=== PATIENT | female | born 1940 | race Caucasian/White ===

== ENCOUNTER → 2023-12-20 09:31 | Outpatient (REF) | payer MEDICARE, BC, SELFPAY | LOC: RAD 09:31 | PROVIDERS: ATTENDING PHYSICIAN Internal Medicine Gastroenterology; FAMILY PHYSICIAN Family Medicine; REFERRING PHYSICIAN Urology | DX: R19.09 Other intra-abdominal and pelvic swelling, mass and lump (principal) | CPT/HCPCS: 76705 ==

== ENCOUNTER → 2024-03-22 09:02 | Outpatient (REF) | payer MEDICARE, BC, SELFPAY | LOC: RCS 09:02 | PROVIDERS: ATTENDING PHYSICIAN Internal Medicine Cardiovascular Disease; FAMILY PHYSICIAN Family Medicine | DX: R06.02 Shortness of breath (principal) | CPT/HCPCS: 93225; 93226 ==

== ENCOUNTER → 2024-03-30 12:46 | Outpatient (REF) | payer MEDICARE, BC, SELFPAY | LOC: RCS 12:46 | PROVIDERS: ATTENDING PHYSICIAN Nurse Practitioner; FAMILY PHYSICIAN Family Medicine | DX: R06.09 Other forms of dyspnea (principal) | CPT/HCPCS: 93017; 93350 ==

== ENCOUNTER → 2024-04-03 12:45 | Outpatient (REF) | payer MEDICARE, BC, SELFPAY | LOC: HWRCS 12:45 | PROVIDERS: ATTENDING PHYSICIAN Nurse Practitioner; FAMILY PHYSICIAN Family Medicine | DX: R06.09 Other forms of dyspnea (principal) | CPT/HCPCS: 93306 ==

== ENCOUNTER → 2024-08-01 10:56 | Outpatient (REF) | payer MEDICARE, BC, SELFPAY | LOC: PAVMRI 10:56 | PROVIDERS: ATTENDING PHYSICIAN Physical Medicine & Rehabilitation | DX: M54.16 Radiculopathy, lumbar region (principal) | CPT/HCPCS: 72148 ==

== ENCOUNTER 2024-10-08 10:20 | Emergency (ER) | payer MEDICARE, BC, SELFPAY ==
[2024-10-08 10:26] VITALS: BP 125/60
--- NOTE | 2024-10-08 10:34 | ED.GENMED ---
ED Provider Triage
<Mara Edmonds PA-C - Last Filed: 10/08/24 10:53>
-
Patient seen by provider in Triage?: Seen in Triage
83 y/o F
cad, htn, hld
started with nausea/vomiting/diarrhea 4 days ago, lasted about 48 hours
now can drink liquids but no apeptite
feels very fatigued, lighthaeded with standing and weak
low bp 90s /50s
sent by PCP
pt appears generally weak
dry mouth
will w/u with labs, ekg
History of Present Illness
<Mara Edmonds PA-C - Last Filed: 10/08/24 10:53>
General
Chief Complaint: Dehydration Symptoms
Time Seen by Provider: 10/08/24 11:59
<Jasper Graham PA-C - Last Filed: 10/08/24 15:48>
General
Source: patient
History of Present Illness
History of Present Illness:
83-year-old female with past medical history of hyperlipidemia, diverticulitis s/p colonic abscess with bowel resection presenting to the ER at the request of primary care provider after she started having intractable vomiting over the last 2 days,
today felt a little bit better however still felt weak and fatigued. Patient saw primary care provider today who wanted patient to come to the ER for further treatment. Patient notes that since the colon resection she has dealt with chronic nausea
and follows with Dr. Walsh from GI for this issue. Notes illness has been a precipitating factor in the past. Patient denying any pain. States nausea seems to be under control at this time. No fevers. No known sick contacts. No diarrhea or
urinary symptoms
Past History
<Mara Edmonds PA-C - Last Filed: 10/08/24 10:53>
Past History
ED Past Medical History: Asthma, CHF, GERD, Hypercholesterolemia, Hypothyroidism, Other (Hiatal hernia) and Other (Questionable bladder reflux, frequent UTIs)
ED Past Surgical History: Cholecystectomy and Gynecological (Tubal ligation)
Social History
Tobacco: Non-smoker
Alcohol: None
Drug: None
Personal:
Living: with family
Employment: Retired
Family History
Family History: Other (Noncontributory)
Review of Systems
<Jasper Graham PA-C - Last Filed: 10/08/24 15:48>
Review of Systems
All Other Systems: ROS reviewed and negative except as documented in HPI and ROS
Phy Exam
<Jasper Graham PA-C - Last Filed: 10/08/24 15:48>
Physical Exam
Physical Exam:
GENERAL: Alert , in no apparent distress
EYE: clear conjunctiva b/l
HEAD: NCAT
ENT: mmm.
CARDIAC: Regular rate and rhythm .
LUNGS: Clear breath sounds bilaterally, no acute respiratory distress, no wheezes/rales/rhonchi
ABDOMEN: Soft, without focal tenderness, no r/g, no cvat
NEUROLOGICAL: Alert and oriented
SKIN: Warm and dry, skin intact.
MUSCULOSKELETAL: No edema, well perfused.
PSYCH: Normal and appropriate interaction.
Scores
<Jasper Graham PA-C - Last Filed: 10/08/24 15:48>
Heart Failure Risk
Heart Failure Risk Score: Not Applicable
Heart Score for Chest Pain Patients
STEMI patient?: Not applicable
Withdrawal Assessment of Alcohol
Withdrawal Assessment Completed?: Not applicable
Course
<Mara Edmonds PA-C - Last Filed: 10/08/24 10:53>
Orders/Labs/Results
Orders:
Orders
10/08/24 10:28
Electrocardiogram (*1) Urgent
Reason for Study: Abdominal Pain
EKG- Treatment ONCE
10/08/24 10:40
Complete Blood Count/With Diff Urgent
Comprehensive Metabolic Panel Urgent
Lipase Urgent
Magnesium Urgent
10/08/24 12:13
0.9% Sodium Chloride 1000 ml [Nss] 1,000 ml IV BOLUS
Ondansetron Injectable [Zofran] 4 mg IV NOW STA
10/08/24 12:51
COVID-19 Antigen Urgent
Source: Nasal Swab
Influenza A+B Rapid Molecular Urgent
AJ Source: Nasal Swab
Specimen Description:
10/08/24 12:52
Urinalysis Reflex To Culture Urgent
Date Specimen was Collected: 10/08/24
Time Specimen was Collected: 12:50
Urine Microscopic Reflex Cult Urgent
Urine Culture Urgent
AJ Source: U
Specimen Description:
Date Specimen was Collected: 10/08/24
Time Specimen was Collected: 12:50
10/08/24 13:31
CefTRIAXone [Rocephin] 1,000 mg IV NOW STA
Abnormal Lab Results
10/08/24 10/08/24
10:40 12:52
RBC 4.16 L 10^6/uL
(4.20-5.40)
MCH 33.9 H pg
(27.0-31.0)
Monocytes % 10.5 H %
(1.7-9.3)
Sodium 132 L mmol/L
(135-145)
Chloride 96 L mmol/L
(98-107)
BUN 20 H mg/dl
(7-17)
Magnesium 1.5 L mg/dl
(1.6-2.3)
Ur Occult Blood Reflex Trace A
(Negative)
Urine Nitrite (Reflex) Positive A
(Negative)
Leukocyte Esterase Rfl 2+ A
(Negative)
Urine WBC (Reflex) 40-50 A /HPF
(0-5)
Urine Bacteria (Reflex) Many A
(Negative)
10/08/24 10:40
10/08/24 10:40
Vital Signs
Initial and Last Documented VS:
Initial Vital Signs
Temp Pulse Resp BP Pulse Ox
98.0 F 74 18 125/60 99
10/08/24 10:26 10/08/24 10:26 10/08/24 10:26 10/08/24 10:26 10/08/24 10:26
Last Documented Vital Signs
Temp Pulse Resp BP Pulse Ox
98.0 F 70 17 120/57 98
10/08/24 10:26 10/08/24 15:31 10/08/24 15:31 10/08/24 15:31 10/08/24 15:31
<Jasper Graham PA-C - Last Filed: 10/08/24 15:48>
Orders/Labs/Results
Orders:
Orders
10/08/24 10:28
Electrocardiogram (*1) Urgent
Reason for Study: Abdominal Pain
EKG- Treatment ONCE
10/08/24 10:40
Complete Blood Count/With Diff Urgent
Comprehensive Metabolic Panel Urgent
Lipase Urgent
Magnesium Urgent
10/08/24 12:13
0.9% Sodium Chloride 1000 ml [Nss] 1,000 ml IV BOLUS
Ondansetron Injectable [Zofran] 4 mg IV NOW STA
10/08/24 12:51
COVID-19 Antigen Urgent
Source: Nasal Swab
Influenza A+B Rapid Molecular Urgent
AJ Source: Nasal Swab
Specimen Description:
10/08/24 12:52
Urinalysis Reflex To Culture Urgent
Date Specimen was Collected: 10/08/24
Time Specimen was Collected: 12:50
Urine Microscopic Reflex Cult Urgent
Urine Culture Urgent
AJ Source: U
Specimen Description:
Date Specimen was Collected: 10/08/24
Time Specimen was Collected: 12:50
10/08/24 13:31
CefTRIAXone [Rocephin] 1,000 mg IV NOW STA
Abnormal Lab Results
10/08/24 10/08/24
10:40 12:52
RBC 4.16 L 10^6/uL
(4.20-5.40)
MCH 33.9 H pg
(27.0-31.0)
Monocytes % 10.5 H %
(1.7-9.3)
Sodium 132 L mmol/L
(135-145)
Chloride 96 L mmol/L
(98-107)
BUN 20 H mg/dl
(7-17)
Magnesium 1.5 L mg/dl
(1.6-2.3)
Ur Occult Blood Reflex Trace A
(Negative)
Urine Nitrite (Reflex) Positive A
(Negative)
Leukocyte Esterase Rfl 2+ A
(Negative)
Urine WBC (Reflex) 40-50 A /HPF
(0-5)
Urine Bacteria (Reflex) Many A
(Negative)
10/08/24 10:40
10/08/24 10:40
Vital Signs
Initial and Last Documented VS:
Initial Vital Signs
Temp Pulse Resp BP Pulse Ox
98.0 F 74 18 125/60 99
10/08/24 10:26 10/08/24 10:26 10/08/24 10:26 10/08/24 10:26 10/08/24 10:26
Last Documented Vital Signs
Temp Pulse Resp BP Pulse Ox
98.0 F 70 17 120/57 98
10/08/24 10:26 10/08/24 15:31 10/08/24 15:31 10/08/24 15:31 10/08/24 15:31
<Jasper Graham PA-C - Last Filed: 10/08/24 15:48>
MDM/Problems Addressed
Differential Diagnosis Includes:
GERD, gastritis, gastroenteritis, gastroparesis, electrolyte derangement, dehydration
MDM/Problems Addressed:
83-year-old female presenting to the emergency department for evaluation of 2 days of nausea and vomiting, sent to the ER by primary care provider for IV hydration and further management. Patient stating presently she is without pain or nausea.
Patient is afebrile and hemodynamically stable. Labs initiated in triage are all reassuring. She does have a mild prerenal azotemia likely due to volume depletion. Fluids and Zofran ordered. Disposition pending.
<Jasper Graham PA-C - Last Filed: 10/08/24 15:48>
*Pulse Oximetry
Patient hypoxic: no
*Critical Care Note
Total Time (30-74mins, 75-104mins- exclusive of procedures): Not Applicable
<Jasper Graham PA-C - Last Filed: 10/08/24 15:48>
Patient Management
Escalation/DeEscalation of care consider admission/obs:
Patient urine nitrite positive and 2+ leuks. will cover with dose of rocephin now and PO keflex for 1 week. Patient noting much improvement following fluids and zofran. Stable for d/c home. Aware of return precautions
ED Attending Note
<Mara Edmonds PA-C - Last Filed: 10/08/24 10:53>
-
Portions of this chart may have been created with voice recognition software.� Occasional wrong word or��sound alike� substitutions may have occurred due to the inherent limitations of voice recognition software.
Discharge Plan
Departure
Patient Disposition: Home (Routine Discharge)
Date of Disposition: 10/08/24
Time of Disposition: 15:23
Patient with high blood pressure during this ER visit?: No
Discharge Problem:
Acute UTI, Nausea and vomiting, Dehydration
Instructions: Nausea and Vomiting, Adult (DC)
Prescriptions:
New
cephalexin 500 mg tablet
500 mg PO BID 7 Days Qty: 14 0RF
No Action
ipratropium bromide 1 SPRAY spray,non-aerosol
2 spray intranasal TIDPRN PRN (Reason: congestion/allergeis)
atorvastatin 20 MG tablet
20 mg PO QPM
liothyronine 5 MICROGRAM tablet
5 mcg PO DAILY
fluticasone furoate [Arnuity Ellipta] 100 MCG blister with device
1 puff inhalation R DAILY
fexofenadine [Kaye] 180 MG tablet
180 mg PO DAILY
celecoxib 200 MG capsule
200 mg PO DAILY
aspirin 81 MG tablet,delayed release (DR/EC)
81 mg PO DAILY
cranberry 400 MG capsule
400 mg PO DAILY
azelastine-fluticasone [Dymista] 23 GM spray,non-aerosol
2 spray NS DAILY
multivitamin with folic acid [Tab-A-Ujarez] 1 TABLET tablet
1 tab PO DAILY
estradiol-norethindrone acet [Amabelz] 1 EACH tablet
1 ea PO DAILY
albuterol sulfate [ProAir RespiClick] 90 MCG aerosol powdr breath activated
1 puff inhalation Q4HPRN PRN (Reason: wheezing/sob)
cyanocobalamin (vitamin B-12) 1,000 MCG tablet
1,000 mcg PO DAILY
ascorbic acid (vitamin C) [Vitamin C] 500 MG tablet
1,000 mg PO DAILY
cholecalciferol (vitamin D3) 1,000 UNITS tablet
5,000 units PO DAILY
promethazine 25 MG tablet
25 mg PO DAILY AT 0700 PRN (Reason: nausea)
midodrine 2.5 MG tablet
2.5 mg PO PRN PRN (Reason: SBP <100)
mirabegron [Myrbetriq] 25 MG tablet extended release 24 hr
25 mg PO DAILY
hydrocodone-acetaminophen 1 TABLET tablet
1 tab PO Q4HPRN PRN (Reason: moderate to severe pain) Qty: 25 0RF
Referrals:
Ronit Hubbard, [Family Provider] -
Interventions
Interventions:
*Risk Screen - Suicide Last Done: 10/08/24 12:48
*General Assessment Last Done: 10/08/24 12:48
*Neglect/Abuse Screening Last Done: 10/08/24 12:48
*Nursing Disposition Last Done: 10/08/24 15:33
ED- Cardiac Assessment Last Done: 10/08/24 12:49
ED- Neurological Assessment Last Done: 10/08/24 12:49
ED- Pulmonary Assessment Last Done: 10/08/24 12:49
Discharge Date and Time
Discharge Date/Time: 10/08/24 15:34
Print Language: LAO
[2024-10-08 11:04] LABS: % Basophils 0.4 % (0-2); % Eosinophils 0.2 % (0-6); % Lymphocytes 26.7 % (20.5-51.1); % Monocytes 10.5 % (1.7-9.3); % Neutrophils 62.2 % (42.2-75.2); Absolute Lymphocytes 1.3 10^3/uL (1.2-3.4); Absolute Monocytes 0.5 10^3/uL (0.1-0.6); Hematocrit 39.5 % (37.0-47.0); Hemoglobin 14.1 g/dL (12.0-16.0); Mean Corp Hgb Conc. 35.7 g/dL (33.0-37.0); Mean Corpuscular Hgb 33.9 pg (27.0-31.0); Mean Platelet Volume 9.9 fL (7.4-10.4); Nucleated Red Blood Cells % 0 %; Platelet Count 251 10^3/uL (130-400); Red Blood Cell Count 4.16 10^6/uL (4.20-5.40); Red Cell Dist. Width 12.1 % (11.5-14.5); White Blood Cell Count 4.9 10^3/uL (4.8-10.8)
[2024-10-08 11:22] LABS: ALT (SGPT) 26 U/L (0-35); AST (SGOT) 34 U/L (14-36); Albumin 4.1 g/dl (3.5-5.0); Alkaline Phosphatase 65 U/L (38-126); Blood Urea Nitrogen 20 mg/dl (7-17); Calcium 9.1 mg/dl (8.4-10.2); Carbon Dioxide 24 mmol/L (22-30); Chloride 96 mmol/L (98-107); Glucose 97 mg/dl (70-99); Lipase 99 U/L (23-300); Magnesium 1.5 mg/dl (1.6-2.3); Potassium 4.1 mmol/L (3.5-5.1); Sodium 132 mmol/L (135-145); Total Bilirubin 0.5 mg/dl (0.2-1.3); Total Protein 6.8 g/dl (6.3-8.2); eGFR > 60.00
[2024-10-08 12:37] VITALS: BP 138/56
[2024-10-08] MEDS: ZOFRAN 4 MG IV (13:04)
[2024-10-08] MEDS: NSS 1000 IV (13:04)
[2024-10-08 13:20] LABS: COVID-19 Antigen Negative (Negative)
[2024-10-08 13:22] LABS: Urine Albumin Negative (Neg - Trace); Urine Bilirubin Negative (Negative); Urine Character Clear (Clear); Urine Color Yellow; Urine Glucose Negative (Negative); Urine Ketone Negative (Negative); Urine Leukocyte 2+ (Negative); Urine Nitrite Positive (Negative); Urine Occult Blood Trace (Negative); Urine Specific Gravity 1.005 (<1.030); Urine Urobilinogen Negative (Neg - 1+)
[2024-10-08] MEDS: ROCEPHIN 1000 MG IV (14:25)
[2024-10-08 15:15] LABS: Urine Amorphous Seen; Urine Squamous Cell >30 /LPF (Few)
[2024-10-08 15:16] LABS: Urine Red Blood Cell 0-2 /HPF (0-2); Urine White Cell 40-50 /HPF (0-5)
[2024-10-08 15:17] LABS: Urine Bacteria Many (Negative)
[2024-10-08 15:31] VITALS: BP 120/57
== END 2024-10-08 15:34 | disposition home or self-care (01) ==
LOC: EMR 10:20
PROVIDERS: Physician Assistant; Physician Assistant Medical; EMERGENCY PHYSICIAN Emergency Medicine; FAMILY PHYSICIAN Family Medicine
DX: N39.0 Urinary tract infection, site not specified (principal); R11.2 Nausea with vomiting, unspecified; E86.0 Dehydration; E78.00 Pure hypercholesterolemia, unspecified; I50.9 Heart failure, unspecified; K21.9 Gastro-esophageal reflux disease without esophagitis; E03.9 Hypothyroidism, unspecified; K44.9 Diaphragmatic hernia without obstruction or gangrene; J45.909 Unspecified asthma, uncomplicated; Z90.49 Acquired absence of other specified parts of digestive tract; Z98.51 Tubal ligation status
CPT/HCPCS: 99283; 96374; 96375; 96361; 80053; 81003; 81015; 83690; 83735; 85025; 87077; 87086; 87186; 87502; 87811; 93005

== ENCOUNTER → 2024-11-01 11:54 | Outpatient (REF) | payer MEDICARE, BC, SELFPAY | LOC: WDC 11:54 | PROVIDERS: ATTENDING PHYSICIAN Student in an Organized Health Care Education/Training Program | DX: Z12.31 Encounter for screening mammogram for malignant neoplasm of breast (principal) | CPT/HCPCS: 77063; 77067 ==

== ENCOUNTER → 2024-11-13 09:06 | Outpatient (REF) | payer MEDICARE, BC, SELFPAY | LOC: WDC 09:06 | PROVIDERS: ATTENDING PHYSICIAN Student in an Organized Health Care Education/Training Program; FAMILY PHYSICIAN Family Medicine | DX: R92.8 Other abnormal and inconclusive findings on diagnostic imaging of breast (principal) | CPT/HCPCS: 76642 ==